=== PATIENT | male | born 1965 | race Caucasian/White ===

== ENCOUNTER 2017-03-05 17:42 | Emergency (ER) | payer OTHER ==
[2017-03-05 19:16] VITALS: BP 154/76
--- NOTE | 2017-03-05 19:29 | UC ---
Throat Pain/Nasal Junito HPI - HPI Summary HPI Summary: ST starting 2 days ago, today fever and aches. Lots of difficulty swallowing. Has 16-yr-old at home who is on remicade, worried about transmission. - History of Current Complaint Chief Complaint: UCGeneralIllness Stated Complaint: SORE THROAT Time Seen by Provider: 03/05/17 19:08 Hx Obtained From: Patient Onset/Duration: Gradual Onset, Lasting Days Severity: Moderate Cough: Nonproductive Associated Signs & Symptoms: Positive: Nasal Discharge, Fever - Allergies/Home Medications Allergies/Adverse Reactions: Allergies Allergy/AdvReac Type Severity Reaction Status Date / Time Penicillins [PCN] Allergy Unknown Verified 03/05/17 19:06 Reaction Details Home Medications: Home Medications Desloratadine [Desloratadine Odt] 5 mg PO DAILY 03/05/17 [History Confirmed ] Montelukast Sodium TAB* [Singulair 10 MG TAB*] 10 mg PO DAILY 03/05/17 [History Confirmed 03/05/17] Tamsulosin CAP* [Flomax CAP*] 0.4 mg PO BEDTIME PRN 03/05/17 [History Confirmed 03/05/17] Tizanidine HCl [Zanaflex] 4 mg PO DAILY 03/05/17 [History Confirmed 03/05/17] hydrOXYzine HCL TAB* [Atarax 25 MG TAB*] 25 mg PO DAILY 03/05/17 [History Confirmed 03/05/17] PMH/Surg Hx/FS Hx/Imm Hx Endocrine History Of: Denies: Diabetes, Thyroid Disease Cardiovascular History Of: Denies: Cardiac Disorders, Hypertension Respiratory History Of: Reports: Asthma Denies: COPD GI/ History Of: Reports: Kidney Stones Denies: Ulcer - Surgical History Surgical History: None - Family History Known Family History: Positive: Hypertension - Social History Lives: With Family Alcohol Use: None Substance Use Type: None Smoking Status (MU): Never Smoked Tobacco - Immunization History Most Recent Influenza Vaccination: 2016 Most Recent Tetanus Shot: up to date Most Recent Pneumonia Vaccination: none Review of Systems Constitutional: Fever, Chills Skin: Negative Eyes: Negative ENT: Sore Throat Respiratory: Negative Cardiovascular: Negative Gastrointestinal: Negative Genitourinary: Negative Motor: Negative Neurovascular: Negative Musculoskeletal: Negative Neurological: Negative Psychological: Negative All Other Systems Reviewed And Are Negative: Yes Physical Exam Triage Information Reviewed: Yes Appearance: Well-Appearing, Well-Nourished, Pain Distress - with swallowing Vital Signs: Initial Vital Signs Temp 100.4 F 03/05/17 19:09 Pulse 86 03/05/17 19:09 Resp 20 03/05/17 19:09 BP 154/76 03/05/17 19:09 Pulse Ox 98 03/05/17 19:09 Vital Signs Reviewed: Yes Eye Exam: Normal Eyes: Positive: Conjunctiva Clear ENT: Positive: Hearing grossly normal, Pharyngeal erythema, TMs normal, Tonsillar swelling Dental Exam: Normal Neck: Positive: Enlarged Nodes @ - L tonsillar Respiratory Exam: Normal Respiratory: Positive: Chest non-tender, Lungs clear, Normal breath sounds, No respiratory distress, No accessory muscle use Cardiovascular Exam: Normal Cardiovascular: Positive: RRR, No Murmur Musculoskeletal Exam: Normal Neurological Exam: Normal Neurological: Positive: Alert Psychological Exam: Normal Skin Exam: Normal Throat Pain/Nasal Course/Dx - Differential Dx/Diagnosis Provider Diagnoses: tonsillitis. Elevated blood pressure due to pain Discharge - Discharge Plan Condition: Stable Disposition: HOME Prescriptions: Cephalexin CAP* [Keflex 500 CAP*] 500 mg PO TID #30 cap Patient Education Materials: Tonsillitis (ED) Additional Instructions: Your rapid strep was negative, so I am uncertain as to whether this treatment will help. If your infection is viral, it has to get better with time. If you have fevers longer than 3 days, trouble with choking while swallowing, or difficulty breathing, please get seen again.
== END 2017-03-05 19:50 | disposition home or self-care (01) ==
LOC: UCEAST 17:42
DX: J03.90 Acute tonsillitis, unspecified (principal); R03.0 Elevated blood-pressure reading, without diagnosis of hypertension
CPT/HCPCS: 87651; 99212; G0463